=== PATIENT | male | born 1965 | race Two or more races ===

== ENCOUNTER 2018-01-02 12:44 | Emergency (ER) | payer BC, MEDICAID ==
[~2018-01-02] VITALS: Ht 182.9 cm; Wt 95.3 kg
[2018-01-02 13:26] VITALS: BP 106/78
[2018-01-02] MEDS ORDERED: AUGMENTIN 875-1 EAC1 ORAL (13:48)
[2018-01-02] MEDS ORDERED: FLONASE ALLERG9.9 ML NS (13:48)
--- NOTE | 2018-01-02 13:48 | Emergency Room Report ---
History of Present Illness General Chief Complaint: Upper Respiratory Illness Source: Patient Present Illness HPI 52-year-old male patient presents ER complaining of "I think I have a sinus infection". Reports has had a sinus infection and a runny nose intermittently over the past 6 weeks. Reports purulent cough during this time. Reports mucus "smells bad", states that normally "it doesn't smell bad". Reports been taking antihistamines with mild relief of symptoms. Reports been taking Tylenol. Reports no hemoptysis. reports intermittent subjective fever during this time, afebrile currently, states no fever in past few days. Denies chest pain, shortness of breath, abdominal pain. reports currently living and sober living house for the past 2 months. denies other acute symptoms. Denies hx of heart disease or MA. Allergies: Coded Allergies: No Known Allergies (Unverified , 01/02/18) Patient History Past Medical History: see triage record Reviewed Nursing Documentation: PMH: Agreed; PSxH: Agreed Nursing Documentation-PMH Past Medical History: No Stated History Review of Systems All Other Systems: negative except mentioned in HPI Physical Exam Vital Signs Date Time Temp Pulse Resp B/P (MAP) Pulse Ox O2 Delivery O2 Flow Rate FiO2 01/02/18 12:51 97.9 90 18 106/78 95 Room Air 97.9 Sp02 EP Interpretation: reviewed, normal General Appearance: well appearing, no apparent distress, alert, GCS 15, non- toxic Head: normocephalic, atraumatic, other - no frontal or maxillary sinus TTP Eyes: bilateral eye normal inspection, bilateral eye PERRL ENT: hearing grossly normal, normal pharynx, no angioedema, normal voice, TMs + canals normal, uvula midline, moist mucus membranes, nasal congestion, other - no gum erythema or edema, no abscess, no lesions, no trismus Neck: full range of motion, no bony tend Respiratory: lungs clear, normal breath sounds, no rhonchi, no respiratory distress, no accessory muscle use, no wheezing, speaking full sentences Cardiovascular #1: regular rate, rhythm, no edema Musculoskeletal: back normal, digits/nails normal, gait/station normal, normal range of motion, non-tender Neurologic: alert, oriented x3, responsive, motor strength/tone normal, sensory intact Psychiatric: mood/affect normal Skin: no rash Lymphatic: no adenopathy Medical Decision Making PA Attestation Dr. Oscar is my supervising Physician whom patient management has been discussed with. Diagnostic Impression: Primary Impression: Sinusitis ER Course Pt presents to ED c/o "I have a sinus infection" and nasal congestion. DDX considered but are not limited to s influenza, viral URI, pneumonia, strep throat, rhinitis, sinusitis, otitis media. VITAL SIGNS are WNL, patient is afebrile. ER course: Due to chronicity of symptoms and patient history, will provide patient with antibiotics to treat for likely sinus infection. no maxillary or frontal sinus tenderness to palpation, does not require imaging at this time. continue taking antihistamine for continued relief. Will provide Flonase nasal congestion. Continue taking Tylenol for symptom relief. ER precautions given. follow-up with dentist. Follow-up with PCP and discuss referral to ENT. Don't smoke. DISCHARGE: -Rx given for Augmentin -Rx given for Flonase At this time pt is stable for d/c to home. Patient reports being in no acute distress currently. Patient will be treated for probable sinus congestion and patient agrees with treatment plan. Patient to take medications as instructed Will provide with patient care instructions and any necessary prescriptions. Care plan and follow-up instructions provided. Patient instructed to follow-up with primary care provider in 3 - 5 days and discuss follow-up with ENT. Patient questions asked and answered. ER precautions given. Patient instructed to return to ER immediately for any new or worsening of symptoms including but not limited to fever, facial weakness , difficulty speaking, difficulty breathing, difficulty swallowing. - Please note that this Emergency Department Report was dictated using [email or web address] technology software, occasionally this can lead to erroneous entry secondary to interpretation by the dictation equipment. Last Vital Signs Date Time Temp Pulse Resp B/P (MAP) Pulse Ox O2 Delivery O2 Flow Rate FiO2 01/02/18 13:26 97.9 78 18 106/78 95 Room Air 97.9 Disposition: HOME, SELF-CARE Condition: Stable Scripts Amoxicillin/Potassium Clav 875-125* (AUGMENTIN 875-125 TABLET*) 1 Each Tablet 1 TAB ORAL TWICE A DAY, #14 TAB Prov: Yared Martínez 01/02/18 Fluticasone Propionate (Flonase Allergy Relief) 9.9 Ml [place].susp 9.9 ML NS DAILY, #9.9 ML Prov: Yared Martínez 01/02/18 Referrals: NOT CHOSEN IPA/MD,REFERRING (PCP) Patient Instructions: Sinusitis, Adult, [id number] Additional Instructions: Followup with primary care provider in 3 -5 days. Follow up with ENT specialist. Take medications as directed. Patient questions asked and answered. ER precautions given, patient instructed to return to ER immediately for any new or worsening of symptoms. Yared Martínez Jan 02, 2018 13:48
[2018-01-02 14:03] VITALS: BP 106/78
== END 2018-01-02 14:04 | disposition home or self-care (01) ==
LOC: EDBD 12:44 → EMR 13:35
DX: J32.9 Chronic sinusitis, unspecified (principal); F17.200 Nicotine dependence, unspecified, uncomplicated; R05 Cough
CPT/HCPCS: 99283